=== PATIENT | male | born 1940 | race Two or more races ===

== ENCOUNTER → 2019-12-05 | Emergency (ER) | payer OTHER ==
[~2019-12-05] VITALS: Ht 167.6 cm; Wt 95.3 kg
[~2019-12-05] MED LIST: AZITHROMYCIN500 MG PO; FLONASE16 GM NS; HUMIRA40 MG/0.1; METHYLPREDNISOLO4 MG; NABUMETONE750 MG PO; TRAMADOL HCL-AP1 TAB; TRAMADOL HCL-AP1 TAB PO; TUSSI-PRES LIQ474 ML PO
== END | disposition home or self-care (01) ==
LOC: ER 08:57
DX: B34.9 Viral infection, unspecified (principal); Z03.818 Encounter for observation for suspected exposure to other biological agents ruled out

== ENCOUNTER → 2024-01-08 07:36 | Outpatient (CLI) | payer OTHER ==
[2024-01-08 08:51] LABS: HEMOGLOBIN 14.3 g/dL (13-16.00); MEAN CELL VOLUME 96.6 fL (80.0-100.00); MEAN CORPUSCULAR HEMOGLOBIN 32.8 pg (27.00-32.0); PLATELET COUNT 189 K/uL (150-450); RED BLOOD COUNT 4.35 M/uL (4.00-6.00); RED CELL DISTRIBUTION WIDTH 14.1 % (11.5-14.5)
[2024-01-08 08:52] LABS: URINE APPEARANCE Clear; URINE BILIRRUBIN Negative (NEGATIVE); URINE BLOOD Negative; URINE COLOR Yellow; URINE GLUCOSE Negative (NEGATIVE); URINE KETONE Negative (NEGATIVE); URINE LEUKOCYTE Negative; URINE NITRATE Negative; URINE PROTEIN Negative (NEGATIVE)
[2024-01-08 08:53] LABS: URINE BACTERIA 11.3 uL (0.0-1933); URINE RBC 4.2 uL (0.0-20.8); URINE WBC 2.6 uL (0.0-23.2)
[2024-01-08 08:54] LABS: URINE EPITHELIAL CELLS 0.9 uL (0.0-38.8)
[2024-01-08 09:15] LABS: INR 1.02; PARTIAL THROMBOPLASTIN TIME 28.6 SECONDS (22.0-34.0); PROTHROMBIN TIME 11.1 SECONDS (9.0-11.5)
[2024-01-08 09:20] LABS: ALBUMIN 3.8 gm/dL (3.4-5.0); BILIRUBIN TOTAL 0.72 mg/dL (0.3-1.2); CALCIUM 9.5 mg/dL (8.5-10.1); CREATININE SERUM 0.98 mg/dL (0.70-1.30); GFR 73.41; GLOBULINA 3.4 G/DL (2.4-3.5); POTASSIUM 4.67 mEq/L (3.5-5.1); TOTAL PROTEIN 7.2 gm/dL (6.4-8.2)
[2024-01-08 09:35] LABS: COL EPI 78 SECONDS (82-175)
== END | disposition home or self-care (01) ==
LOC: LAB 07:36
PROVIDERS: ATTEND Orthopaedic Surgery
DX: D64.9 Anemia, unspecified (principal); E88.89 Other specified metabolic disorders; D68.8 Other specified coagulation defects; N39.0 Urinary tract infection, site not specified; Z22.322 Carrier or suspected carrier of Methicillin resistant Staphylococcus aureus; E11.9 Type 2 diabetes mellitus without complications; I10 Essential (primary) hypertension

== ENCOUNTER 2024-01-08 08:25 | Outpatient (CLI) | payer OTHER | END 2024-01-08 08:33 | disposition home or self-care (01) | LOC: TOM 08:25 | PROVIDERS: ATTEND Orthopaedic Surgery | DX: M16.11 Unilateral primary osteoarthritis, right hip (principal); M16.12 Unilateral primary osteoarthritis, left hip; Z76.89 Persons encountering health services in other specified circumstances; Z96.651 Presence of right artificial knee joint; M25.562 Pain in left knee ==

== ENCOUNTER 2024-01-18 09:30 | Inpatient (IN) | payer OTHER ==
[~2024-01-18] VITALS: Ht 167.6 cm; Wt 83.5 kg
[2024-01-24] MEDS ORDERED: LIPITOR40 MG PO (11:00)
[2024-01-24] MEDS ORDERED: SYNTHROID88 MCG PO (11:00)
[2024-01-24 11:29] LABS: HEMATOCRIT 38.4 % (39.0-48.0); HEMOGLOBIN 12.8 g/dL (13-16.00); MEAN CELL VOLUME 97.1 fL (80.0-100.00); MEAN CORPUSCULAR HEMOGLOBIN 32.3 pg (27.00-32.0); MEAN CORPUSCULAR HGB CONC 33.3 g/dl (32.0-36.0); PLATELET COUNT 180 K/uL (150-450); RED BLOOD COUNT 3.96 M/uL (4.00-6.00)
[2024-01-30] MEDS ORDERED: EPINEPHRINE HCL/PF 1 MG/ML AMPUL IR ONE (12:45)
[2024-01-30] MEDS ORDERED: BUPIVACAINE HCL 30 ML VIAL IJ ONE (13:00)
[2024-01-30] MEDS ORDERED: TRANEXAMIC ACID 100MG/1ML (1000MG) AMPUL IV ONE (13:00)
[2024-01-30] MEDS ORDERED: VANCOMYCIN HCL 1,000 MG VIAL IR ONE (13:00)
[2024-01-30] MEDS ORDERED: POLYMYXIN B SULFATE 500,000 U VIAL IR ONE (13:00)
[2024-01-30] MEDS ORDERED: CEFOXITIN SODIUM 2,000 MG VIAL IV ONE (13:00)
[2024-01-30] MEDS ORDERED: MEPERIDINE HCL/PF 50 MG/ML VIAL IM PRN (15:00)
[2024-01-30] MEDS ORDERED: PROMETHAZINE HCL 50 MG/ML AMPUL IM PRN (15:00)
[2024-01-30] MEDS ORDERED: SODIUM CHLORIDE 0.45 % 1,000 ML IV SCH (15:00)
[2024-01-30] MEDS ORDERED: ONDANSETRON HCL 2 MG/ML VIAL IV PRN (15:00)
[2024-01-30] MEDS ORDERED: TRAMADOL HCL 50 MG TABLET PO PRN (15:00)
[2024-01-30] MEDS ORDERED: ONDANSETRON 4 MG TAB.RAPDIS PO PRN (15:00)
[2024-01-30] MEDS ORDERED: PANTOPRAZOLE SODIUM 40 MG TABLET.DR PO SCH (15:01)
[2024-01-30] MEDS ORDERED: CEFAZOLIN SODIUM 1,000 MG VIAL IV SCH (17:00)
[2024-01-30] MEDS ORDERED: CELECOXIB 200 MG CAPSULE PO SCH (17:00)
[2024-01-30] MEDS ORDERED: ACETAMINOPHEN 325 MG TABLET PO SCH (17:00)
[2024-01-30 17:47] VITALS: BP 112/65; O2SAT 95
[2024-01-30] MEDS ORDERED: KETOROLAC TROMETHAMINE 10 MG TABLET PO SCH (21:00)
[2024-01-31 00:28] VITALS: BP 112/73; O2SAT 95
[2024-01-31 06:47] LABS: HEMATOCRIT 31.4 % (39.0-48.0); HEMOGLOBIN 10.9 g/dL (13-16.00); MEAN CELL VOLUME 95.4 fL (80.0-100.00); MEAN CORPUSCULAR HEMOGLOBIN 33.2 pg (27.00-32.0); MEAN CORPUSCULAR HGB CONC 34.8 g/dl (32.0-36.0); PLATELET COUNT 153 K/uL (150-450); RED BLOOD COUNT 3.29 M/uL (4.00-6.00); RED CELL DISTRIBUTION WIDTH 14.6 % (11.5-14.5)
[2024-01-31 08:15] VITALS: BP 116/75; O2SAT 93
[2024-01-31] MEDS ORDERED: RIVAROXABAN 10 MG TAB PO SCH (09:00)
[2024-01-31 12:40] LABS: ALBUMIN 2.8 gm/dL (3.4-5.0); BILIRUBIN TOTAL 0.37 mg/dL (0.3-1.2); CALCIUM 8.2 mg/dL (8.5-10.1); CREATININE SERUM 1.05 mg/dL (0.70-1.30); GFR 67.79; GLOBULINA 2.7 G/DL (2.4-3.5); POTASSIUM 4.09 mEq/L (3.5-5.1); TOTAL PROTEIN 5.5 gm/dL (6.4-8.2)
[2024-01-31] MEDS ORDERED: SIMVASTATIN 20 MG TABLET PO SCH (17:00)
[2024-01-31] MEDS ORDERED: FOLIC ACID 1 MG TABLET PO SCH (17:00)
[2024-01-31] MEDS ORDERED: SOD FERRIC GLUC COMPLX/SUCROSE 62.5 MG in 0.9 % SODIUM CHLORIDE 50 ML IV SCH (17:00)
[2024-01-31 17:08] VITALS: BP 185/91; O2SAT 97
[2024-01-31 18:53] VITALS: BP 11/9; O2SAT 96
[2024-02-01 00:18] VITALS: BP 128/59; O2SAT 95
[2024-02-01] MEDS ORDERED: LEVOTHYROXINE SODIUM 88 MCG TABLET PO SCH (06:00)
[2024-02-01 07:22] LABS: MEAN CELL VOLUME 95.7 fL (80.0-100.00); MEAN CORPUSCULAR HEMOGLOBIN 33.1 pg (27.00-32.0); MEAN CORPUSCULAR HGB CONC 34.5 g/dl (32.0-36.0); PLATELET COUNT 139 K/uL (150-450); RED BLOOD COUNT 3.03 M/uL (4.00-6.00); RED CELL DISTRIBUTION WIDTH 14.9 % (11.5-14.5)
[2024-02-01 08:00] VITALS: BP 114/57; O2SAT 98
[2024-02-01] MEDS ORDERED: SENNA/DOCUSATE SODIUM 1 TAB TABLET PO SCH (09:00)
[2024-02-01] MEDS ORDERED: FINASTERIDE 5 MG TABLET PO SCH (09:00)
[2024-02-01] MEDS ORDERED: TAMSULOSIN HCL 0.4 MG CAP PO SCH (09:00)
== END 2024-02-01 19:10 | DRG 470 ==
LOC: SURH 01-30 07:00 → O/R 01-30 07:32 → SURH 01-30 09:30 → SURG 01-30 16:32
PROVIDERS: ADMIT Orthopaedic Surgery; ATTEND Orthopaedic Surgery
PROC: 0SR90JZ Replacement of Right Hip Joint with Synthetic Substitute, Open Approach (ICD-10-PCS; principal; 2024-01-30 07:00)
DX: M16.11 Unilateral primary osteoarthritis, right hip (principal)

== ENCOUNTER 2024-01-22 10:14 | Outpatient (CLI) | payer OTHER | END 2024-01-22 10:15 | disposition home or self-care (01) | LOC: LAB 10:14 | PROVIDERS: ATTEND Orthopaedic Surgery | DX: Z22.322 Carrier or suspected carrier of Methicillin resistant Staphylococcus aureus (principal) ==

== ENCOUNTER 2024-01-29 09:45 | Outpatient (CLI) | payer OTHER ==
[~2024-01-29 09:45] MED LIST changes: +LIPITOR40 MG PO; +SYNTHROID88 MCG PO
[2024-01-29 10:30] LABS: HEMATOCRIT 35.6 % (39.0-48.0); HEMOGLOBIN 11.8 g/dL (13-16.00); MEAN CORPUSCULAR HEMOGLOBIN 32.5 pg (27.00-32.0); MEAN CORPUSCULAR HGB CONC 33.2 g/dl (32.0-36.0); PLATELET COUNT 204 K/uL (150-450); RED BLOOD COUNT 3.63 M/uL (4.00-6.00); RED CELL DISTRIBUTION WIDTH 14.5 % (11.5-14.5)
== END 2024-01-29 09:46 | disposition home or self-care (01) ==
LOC: LAB 09:45
PROVIDERS: ATTEND Orthopaedic Surgery
DX: D64.9 Anemia, unspecified (principal)

== ENCOUNTER 2024-05-14 12:50 | Emergency (ER) | payer OTHER ==
[~2024-05-14] VITALS: Ht 167.6 cm; Wt 83.9 kg
[2024-05-14] MEDS ORDERED: PROPECIA1 MG (13:35)
[2024-05-14] MEDS ORDERED: TAMS0.4C (13:36)
[2024-05-14] MEDS ORDERED: BARIUM SULFATE 450 ML ORAL.SUSP PO ONE (16:45)
[2024-05-14 17:17] LABS: HEMATOCRIT 43.3 % (39.0-48.0); HEMOGLOBIN 14.4 g/dL (13-16.00); MEAN CORPUSCULAR HEMOGLOBIN 31.2 pg (27.00-32.0); MEAN CORPUSCULAR HGB CONC 33.2 g/dl (32.0-36.0); PLATELET COUNT 218 K/uL (150-450); RED BLOOD COUNT 4.61 M/uL (4.00-6.00); RED CELL DISTRIBUTION WIDTH 14.1 % (11.5-14.5)
[2024-05-14 17:21] LABS: PH,URINE 7.5 (5.0-8.0); URINE APPEARANCE Cloudy; URINE BILIRRUBIN Negative (NEGATIVE); URINE BLOOD Negative; URINE COLOR Yellow; URINE GLUCOSE Negative (NEGATIVE); URINE KETONE 15 (NEGATIVE); URINE LEUKOCYTE Negative; URINE NITRATE Negative; URINE PROTEIN Negative (NEGATIVE); URINE UROBILINOGEN 0.2 E.U./dl
[2024-05-14 17:22] LABS: URINE EPITHELIAL CELLS 1.5 uL (0.0-38.8); URINE RBC 12.6 uL (0.0-20.8)
[2024-05-14 17:23] LABS: URINE BACTERIA 1.2 uL (0.0-1933); URINE WBC 0.7 uL (0.0-23.2)
[2024-05-14 17:56] LABS: CALCIUM 9.2 mg/dL (8.5-10.1); CREATININE SERUM 0.78 mg/dL (0.70-1.30); GFR 95.29; POTASSIUM 4.63 mEq/L (3.5-5.1)
== END 2024-05-15 00:21 | disposition home or self-care (01) ==
LOC: ER 12:52
PROVIDERS: Emergency Medicine
DX: K40.90 Unilateral inguinal hernia, without obstruction or gangrene, not specified as recurrent (principal); E78.00 Pure hypercholesterolemia, unspecified; E03.8 Other specified hypothyroidism; K57.30 Diverticulosis of large intestine without perforation or abscess without bleeding; K59.00 Constipation, unspecified
CPT/HCPCS: 36415; 74177; 99284; Q9965

== ENCOUNTER 2024-06-13 05:48 | Day surgery (SDC) | payer OTHER ==
[2024-06-07 09:24] VITALS: BP 160/77
[2024-06-07 10:20] LABS: URINE APPEARANCE Clear; URINE BILIRRUBIN Negative (NEGATIVE); URINE BLOOD Negative; URINE COLOR Yellow; URINE GLUCOSE Negative (NEGATIVE); URINE KETONE Negative (NEGATIVE); URINE LEUKOCYTE Negative; URINE NITRATE Negative; URINE PROTEIN Negative (NEGATIVE)
[2024-06-07 10:21] LABS: HEMATOCRIT 41.2 % (39.0-48.0); HEMOGLOBIN 13.7 g/dL (13-16.00); MEAN CELL VOLUME 94.8 fL (80.0-100.00); MEAN CORPUSCULAR HEMOGLOBIN 31.5 pg (27.00-32.0); MEAN CORPUSCULAR HGB CONC 33.3 g/dl (32.0-36.0); PLATELET COUNT 199 K/uL (150-450); RED BLOOD COUNT 4.34 M/uL (4.00-6.00); RED CELL DISTRIBUTION WIDTH 15.1 % (11.5-14.5)
[2024-06-07 10:25] LABS: URINE RBC 2.6 uL (0.0-20.8)
[2024-06-07 10:35] LABS: URINE BACTERIA 0 uL (0.0-1933); URINE CAST 0.14 uL (0.0-1.40); URINE EPITHELIAL CELLS 0.3 uL (0.0-38.8); URINE WBC 0.7 uL (0.0-23.2)
[2024-06-07 10:37] LABS: INR 1.01; PARTIAL THROMBOPLASTIN TIME 26.8 SECONDS (22.0-34.0)
[2024-06-07 11:07] LABS: ALBUMIN 3.5 gm/dL (3.4-5.0); BILIRUBIN TOTAL 0.63 mg/dL (0.3-1.2); CREATININE SERUM 0.82 mg/dL (0.70-1.30); GFR 89.95; GLOBULINA 3.3 G/DL (2.4-3.5); POTASSIUM 5.14 mEq/L (3.5-5.1); TOTAL PROTEIN 6.8 gm/dL (6.4-8.2)
[~2024-06-13] VITALS: Ht 167.6 cm; Wt 82.6 kg
[~2024-06-13 05:48] MED LIST changes: +FOLIC ACID0.8 M1 PO; +PROPECIA1 MG; +TAMS0.4C; +TREXALL5 MG PO
[2024-06-13] MEDS ORDERED: CEFAZOLIN SODIUM 1,000 MG VIAL IV ONE (08:30)
[2024-06-13] MEDS ORDERED: BUPIVACAINE HCL/PF 0.25% 30ML VIAL InF ONE (08:45)
[2024-06-13] MEDS ORDERED: KETOROLAC TROMETHAMINE 30 MG VIAL IU ONE (09:45)
[2024-06-13] MEDS ORDERED: KETO10TA2 PO (10:45)
[2024-06-13] MEDS ORDERED: MIRALAX17 GM PO (10:45)
[2024-06-13] MEDS ORDERED: TRAMADOL HCL50 MG PO (10:45)
[2024-06-13] MEDS ORDERED: TYLENOL ARTHRI650 MG PO (10:45)
[2024-06-13] MEDS ORDERED: AMOX1TAB5 PO (10:50)
[2024-06-13] MEDS ORDERED: MORPHINE SULFATE 4 MG/ML VIAL IV ONE (11:30)
== END 2024-06-13 15:40 | disposition home or self-care (01) ==
LOC: CIR.AMB 05:48
PROVIDERS: ATTEND Surgery
DX: K35.30 Acute appendicitis with localized peritonitis, without perforation or gangrene (principal); K40.90 Unilateral inguinal hernia, without obstruction or gangrene, not specified as recurrent; K42.0 Umbilical hernia with obstruction, without gangrene; E03.8 Other specified hypothyroidism
CPT/HCPCS: 44970; 49594; 49650; C1781

== ENCOUNTER → 2024-08-27 07:46 | Outpatient (CLI) | payer OTHER ==
[~2024-08-27 07:46] MED LIST changes: +AMOX1TAB5 PO; +KETO10TA2 PO; +MIRALAX17 GM PO; +TRAMADOL HCL50 MG PO; +TYLENOL ARTHRI650 MG PO
[2024-08-27 08:42] LABS: BASO % 0.9 % (0.1-1.2); EOS # 0.16 (0.04-0.54); EOS % 3.6 % (0.7-7.0); HEMATOCRIT 39.6 % (40.1-51.0); HEMOGLOBIN 13.3 g/dL (13.7-17.5); LYMPH # 0.85 (1.18-3.74); LYMPH % 19.2 % (19.3-53.1); MEAN CORPUSCULAR HEMOGLOBIN 31.5 pg (25.6-32.2); MONO # 0.51 (0.24-0.82); MONO % 11.5 % (4.7-12.5); NEUT # 2.86 (1.56-6.13); NEUT % 64.6 % (34.0-71.1); PLATELET COUNT 233 K/uL (163-369); RED BLOOD COUNT 4.22 M/uL (4.63-6.08); RED CELL DISTRIBUTION WIDTH 14.3 % (11.6-14.4)
[2024-08-27 08:45] LABS: PH,URINE 7.5 (5.0-8.0); URINE APPEARANCE Clear; URINE BILIRRUBIN Negative (NEGATIVE); URINE BLOOD Negative; URINE COLOR Yellow; URINE GLUCOSE Negative (NEGATIVE); URINE KETONE Negative (NEGATIVE); URINE LEUKOCYTE Negative; URINE NITRATE Negative; URINE PROTEIN Negative (NEGATIVE)
[2024-08-27 08:46] LABS: URINE RBC 6.6 uL (0.0-20.8)
[2024-08-27 08:52] LABS: URINE BACTERIA 1.2 uL (0.0-1933); URINE EPITHELIAL CELLS 0.9 uL (0.0-38.8); URINE WBC 0.4 uL (0.0-23.2)
[2024-08-27 09:20] LABS: INR 1.03; PARTIAL THROMBOPLASTIN TIME 28.5 SECONDS (22.0-34.0); PROTHROMBIN TIME 11.2 SECONDS (9.0-11.5)
[2024-08-27 09:47] LABS: ALBUMIN 3.5 gm/dL (3.4-5.0); BILIRUBIN TOTAL 0.64 mg/dL (0.3-1.2); CALCIUM 8.8 mg/dL (8.5-10.1); CREATININE SERUM 0.88 mg/dL (0.70-1.30); GFR 82.91; GLOBULINA 3.5 G/DL (2.4-3.5); POTASSIUM 4.21 mEq/L (3.5-5.1)
[2024-08-27 10:21] LABS: COL EPI 80 SECONDS (82-175)
== END | disposition home or self-care (01) ==
LOC: LAB 07:46 → RAD 07:46
PROVIDERS: ATTEND Orthopaedic Surgery
DX: I10 Essential (primary) hypertension (principal); Z76.89 Persons encountering health services in other specified circumstances; D64.9 Anemia, unspecified; E88.9 Metabolic disorder, unspecified; D68.8 Other specified coagulation defects; N39.0 Urinary tract infection, site not specified; E11.8 Type 2 diabetes mellitus with unspecified complications

== ENCOUNTER 2024-09-05 11:22 | Inpatient (IN) | payer OTHER ==
[~2024-09-05] VITALS: Ht 167.6 cm; Wt 81.6 kg
[2024-09-05 12:30] VITALS: BP 115/66
[2024-09-05 12:32] VITALS: BP 134/77
[2024-09-17] MEDS ORDERED: CEFAZOLIN SODIUM 1,000 MG VIAL ONE (11:24)
[2024-09-17] MEDS ORDERED: TRANEXAMIC ACID 100MG/1ML (1000MG) AMPUL IV ONE (11:25)
[2024-09-17] MEDS ORDERED: KETOROLAC TROMETHAMINE 60 MG VIAL IM ONE (13:34)
[2024-09-17] MEDS ORDERED: VANCOMYCIN HCL 1,000 MG VIAL ONE (13:35)
[2024-09-17] MEDS ORDERED: MORPHINE SULFATE 4 MG/ML VIAL IV ONE (15:45)
[2024-09-17] MEDS ORDERED: PANTOPRAZOLE SODIUM 40 MG TABLET.DR PO SCH (17:40)
[2024-09-17] MEDS ORDERED: ONDANSETRON 4 MG TAB.RAPDIS PO PRN (17:45)
[2024-09-17] MEDS ORDERED: SODIUM CHLORIDE 0.45 % 1,000 ML IV SCH (17:45)
[2024-09-17] MEDS ORDERED: TRAMADOL HCL 50 MG TABLET PO PRN (17:45)
[2024-09-17] MEDS ORDERED: PROMETHAZINE HCL 50 MG/ML AMPUL IM PRN (17:45)
[2024-09-17] MEDS ORDERED: MEPERIDINE HCL/PF 50 MG/ML VIAL IM PRN (17:45)
[2024-09-17] MEDS ORDERED: ONDANSETRON HCL 2 MG/ML VIAL IV PRN (17:45)
[2024-09-17] MEDS ORDERED: KETOROLAC TROMETHAMINE 10 MG TABLET PO SCH (21:00)
[2024-09-17] MEDS ORDERED: ACETAMINOPHEN 325 MG TABLET PO SCH (21:00)
[2024-09-17] MEDS ORDERED: ENALAPRILAT DIHYDRATE 1.25 MG/ML VIAL IV PRN (23:00)
[2024-09-18] MEDS ORDERED: CEFAZOLIN SODIUM 1,000 MG VIAL IV SCH (01:00)
[2024-09-18] MEDS ORDERED: CELECOXIB 200 MG CAPSULE PO SCH (01:00)
[2024-09-18 01:24] VITALS: BP 103/60; O2SAT 97
[2024-09-18] MEDS ORDERED: LEVOTHYROXINE SODIUM 88 MCG TABLET PO SCH (06:00)
[2024-09-18 08:17] LABS: BASO % 0.5 % (0.1-1.2); EOS # 0.27 (0.04-0.54); EOS % 4.9 % (0.7-7.0); HEMATOCRIT 34.5 % (40.1-51.0); HEMOGLOBIN 11.3 g/dL (13.7-17.5); LYMPH # 0.73 (1.18-3.74); LYMPH % 13.3 % (19.3-53.1); MEAN CORPUSCULAR HEMOGLOBIN 32.1 pg (25.6-32.2); MONO # 0.62 (0.24-0.82); MONO % 11.3 % (4.7-12.5); NEUT # 3.81 (1.56-6.13); NEUT % 69.6 % (34.0-71.1); PLATELET COUNT 167 K/uL (163-369); RED BLOOD COUNT 3.52 M/uL (4.63-6.08); RED CELL DISTRIBUTION WIDTH 14.6 % (11.6-14.4)
[2024-09-18] MEDS ORDERED: RIVAROXABAN 10 MG TAB PO SCH (09:00)
[2024-09-18] MEDS ORDERED: FINASTERIDE 5 MG TABLET PO SCH (09:00)
[2024-09-18 09:05] VITALS: BP 111/64; O2SAT 95
[2024-09-18 16:33] VITALS: BP 133/70; O2SAT 96
[2024-09-18] MEDS ORDERED: ATORVASTATIN CALCIUM 40 MG TABLET PO SCH (17:00)
[2024-09-18 17:02] LABS: COVID-19 AG NEGATIVE (NEGATIVE)
[2024-09-18] MEDS ORDERED: TAMSULOSIN HCL 0.4 MG CAP PO SCH (21:00)
[2024-09-19 00:53] VITALS: BP 99/61; O2SAT 100
[2024-09-19 06:45] LABS: BASO % 0.5 % (0.1-1.2); EOS # 0.43 (0.04-0.54); EOS % 7.9 % (0.7-7.0); HEMATOCRIT 34.3 % (40.1-51.0); HEMOGLOBIN 11.3 g/dL (13.7-17.5); LYMPH # 0.82 (1.18-3.74); MEAN CORPUSCULAR HEMOGLOBIN 31.5 pg (25.6-32.2); MONO # 0.68 (0.24-0.82); NEUT # 3.48 (1.56-6.13); NEUT % 63.7 % (34.0-71.1); PLATELET COUNT 171 K/uL (163-369); RED BLOOD COUNT 3.59 M/uL (4.63-6.08); RED CELL DISTRIBUTION WIDTH 14.2 % (11.6-14.4)
[2024-09-19 06:54] LABS: MONO % 12.5 % (4.7-12.5)
[2024-09-19 07:30] VITALS: BP 115/66; O2SAT 97
[2024-09-19] MEDS ORDERED: SENNA/DOCUSATE SODIUM 1 TAB TABLET PO SCH (09:00)
== END 2024-09-19 10:59 | disposition home or self-care (01) | DRG 470 ==
LOC: SURH 09-17 07:00 → O/R 09-17 09:14 → SURH 09-17 11:30 → SURG 09-17 13:52
PROVIDERS: ADMIT Orthopaedic Surgery; ATTEND Orthopaedic Surgery
PROC: 0SRB0JZ Replacement of Left Hip Joint with Synthetic Substitute, Open Approach (ICD-10-PCS; principal; 2024-09-17 07:00)
DX: M16.12 Unilateral primary osteoarthritis, left hip (principal); E03.9 Hypothyroidism, unspecified

== ENCOUNTER 2024-09-25 09:44 | Outpatient (CLI) | payer OTHER | END 2024-09-25 09:45 | disposition home or self-care (01) | LOC: NUCLEAR 09:44 | PROVIDERS: ATTEND Orthopaedic Surgery | DX: M79.652 Pain in left thigh (principal) ==